=== PATIENT | female | born 1955 ===

== ENCOUNTER → 2023-08-14 | Outpatient (CLI) | payer BC | LOC: MC.RAD 08:08 | DX: Z12.31 Encounter for screening mammogram for malignant neoplasm of breast (principal); N64.89 Other specified disorders of breast ==

== ENCOUNTER 2023-12-04 08:07 | Day surgery (SDC) | payer MEDICARE ==
[~2023-12-04] VITALS: Ht 167.6 cm; Wt 62.7 kg
[~2023-12-04 08:07] MED LIST: LR 1,000 ML IV SCH
[2023-12-04] MEDS ORDERED: SLOW FE137 M1 PO (09:05)
[2023-12-04] MEDS ORDERED: PRILOSEC 20MG20 MG PO (09:06)
[2023-12-04] MEDS ORDERED: PROZAC 10MG10 MG PO (09:07)
[2023-12-04] MEDS ORDERED: VITAMIN D 50,1.25 MG PO (09:08)
[2023-12-04] MEDS ORDERED: B-12 500 MCG PO (09:09)
[2023-12-04] MEDS ORDERED: OSCAL 500 TAB500 MG PO (09:10)
[2023-12-04 09:39] VITALS: BP 117/69; PULSE 60; TEMP 97.9
[2023-12-04 11:05] VITALS: BP 90/68; PULSE 73; TEMP 97
[2023-12-04 11:20] VITALS: BP 109/66; PULSE 53
[2023-12-04 11:35] VITALS: BP 117/72; PULSE 51
--- NOTE | 2023-12-04 14:35 | NUR ---
1105: PT TO BAY 4 FROM ENDO SUITE. AMBULATED FROM CART TO RECLINER X2 ASSIST. REPORT RECEIVED FROM ENDO NURSE. PT ALERT AND ORIENTED. DENIES PAIN OR NAUSEA. REQUESTING COFFEE AND APPLESAUCE. RESTING IN RECLINER. CALL LIGHT IN REACH. FAMILY AT BEDSIDE. 1120: PT ALERT AND ORIENTED. TOLERATING COFFEE AND APPLESAUCE. DENIES PAIN AND NAUSEA. RESTING IN RECLINER. CALL LIGHT IN REACH. FAMILY AT BEDSIDE. 1135: PT ALERT AND ORIENTED. TOLERATING COFFEE AND APPLESAUCE. DENIES PAIN AND NAUSE. RESTING IN RECLINER. CALL LIGHT IN REACH. FAMILY AT BEDSIDE. 1140: IV DC'D AT THIS TIME. PT DENIES ASSISTANCE WITH DRESSING. 1147: DR. KOEHLER IN TO SPEAK WITH PT. 1150: DISCHARGE EDUCATION DONE AT THIS TIME. PT STATED UNDERSTANDING OF DC INSTRUCTIONS. DC PAPERWORK GIVEN TO PT. 1200: PT AMBULATED INDEPENDENTLY FROM RECLINER TO WHEELCHAIR. PT OFF UNIT AT THIS TIME. PT DC TO HOME WITH FAMILY PER PERSONAL VEHICLE.
== END 2023-12-04 12:00 | disposition home or self-care (01) ==
LOC: SDCO 08:07
DX: K29.50 Unspecified chronic gastritis without bleeding (principal); K31.89 Other diseases of stomach and duodenum; R19.7 Diarrhea, unspecified; R76.8 Other specified abnormal immunological findings in serum; D50.9 Iron deficiency anemia, unspecified; R19.5 Other fecal abnormalities; K57.30 Diverticulosis of large intestine without perforation or abscess without bleeding; F17.210 Nicotine dependence, cigarettes, uncomplicated; Z85.43 Personal history of malignant neoplasm of ovary; Z79.1 Long term (current) use of non-steroidal anti-inflammatories (NSAID)
CPT/HCPCS: J2704; J7120